=== PATIENT | female | born 1940 | race Caucasian/White ===

== ENCOUNTER → 2016-12-26 | Outpatient (CLI) | payer OTHER, BC ==
--- NOTE | 2016-12-28 19:51 | MRI ---
MRI left knee without contrast Indication: Left knee pain. Findings: The extensor mechanism is intact. The patellofemoral compartment demonstrates no significa nt chondral thinning or subchondral marrow signal abnormality. The patella remains well positioned w ithin the femoral trochlea. The medial and lateral retinacular complexes are intact. Small amount of suprapatellar joint fluid is noted. There is a moderate-sized popliteal fossa cyst with mild synovi tis present. There is a ganglion cyst at the myotendinous junction of the popliteus muscle without t ear. Pes anserine tendons are intact. The medial femorotibial compartment demonstrates moderate jeff dral thinning with small amount of subcortical cyst formation within femoral condyle. Small surface osteophytes are noted to be present without subchondral marrow edema or cystic change. The lateral f emorotibial compartment demonstrates moderate chondral thinning with small amount of subcortical cys tic change within the extra-articular portion of the anterior lateral femoral condyle on sagittal im age 26. No full thickness or high-grade weight-bearing articular cartilage thinning is identified. S urface osteophytes are also noted within the lateral femorotibial compartment. Remaining bone marrow signal is preserved. Cruciate ligaments are intact. The fibullar collateral ligament is normal. Iliotibial band and bicep s femoris are normal. Small amount of edema is noted superficial to the superficial MCL with intact appearance of the deep MCL fibers suggesting a low-grade sprain however given the normal appearance of the MCL potentially an MCL bursitis is also a consideration. The lateral meniscus is normal. The te medial meniscus demonstrates a complex tear involving the posterior horn and body, there is obliq ue oriented tear of the posterior horn/body junction seen on sagittal image 12 which appears to exte nd to the undersurface of the meniscal body. There is an additional radial oriented tear involving t he meniscal body on sagittal image 13. There is no anterior or posterior root tear. Impression: 1. Complex tear of the posterior horn and body of the medial meniscus with combination of horizontal undersurface tear of the posterior horn/body junction and tiny radial oriented tear of the meniscal body. 2. Small amount of fluid superficial to the superficial MCL represents either a grade 1 MCL sprain o r an MCL bursitis, clinical correlation is needed. 3. 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 4. Moderate-sized popliteal fossa cyst with synovitis. 5. No acute cruciate or collateral ligamentous tear. Reported By:
== END ==
LOC: RAD 13:42
PROVIDERS: ATTEND Nurse Practitioner Family
DX: M25.562 Pain in left knee (principal); M17.12 Unilateral primary osteoarthritis, left knee; M71.22 Synovial cyst of popliteal space [Baker], left knee; R26.2 Difficulty in walking, not elsewhere classified
CPT/HCPCS: 73721

== ENCOUNTER → 2017-06-08 | Outpatient (CLI) | payer OTHER, BC ==
--- NOTE | 2017-06-08 14:39 | VAS ---
HISTORY: Left leg pain and edema Study: Venous Doppler Comparison: None TECHNIQUE: Multiple johnson scale and color flow Doppler images of the deep venous system were obtained of the left lower extremity FINDINGS: There is normal respiratory phasicity, compression and augmentation of the extremity veins without ev idence of acute DVT. IMPRESSION: 1. Negative for DVT. Reported By:
== END ==
LOC: RAD 13:54
PROVIDERS: ATTEND Nurse Practitioner Family
DX: M79.605 Pain in left leg (principal)
CPT/HCPCS: 93971

== ENCOUNTER → 2017-07-13 | Outpatient (CLI) | payer OTHER, BC ==
--- NOTE | 2017-07-14 19:55 | CT ---
CT left knee without contrast Indication: Knee pain and swelling following knee replacement 4 months ago Technique: Helical CT images of the left knee were obtained without IV contrast. Reformatted images i n the coronal and sagittal planes were also generated for review. Comparison: MRI 12/26/2016 Findings: Streak artifact from knee arthroplasty hardware moderately limits evaluation. Evaluation fo r soft tissue pathology is also limited without intravenous contrast. Given these limitations, total knee arthroplasty hardware appears well positioned without evidence of hardware loosening or periprosthetic fracture. There is a small suprapatellar joint effusion with as sociated synovial thickening, suggestive for synovitis. No definite loose radiopaque intra-articular bodies are seen. There is also mild nonspecific subcutaneous edema of the prepatellar and pretibial s oft tissues. No discrete drainable fluid collection is identified, given limitations of CT. Evaluatio n of the extensor mechanism is limited due to streak artifact, however there is suggestion of thicken ing of the distal quadriceps as well as patellar tendons, likely representing tendinosis. No definite tear is identified, accounting for streak artifact and limitations of CT technique. Mild generalized muscle atrophy is noted of the distal thigh and proximal foreleg. Impression: No hardware complication or acute osseous abnormality of the left knee. Small suprapatellar joint effusion with associated synovial thickening, suggestive for synovitis. Mild thickening of the distal quadriceps and patellar tendons, suggestive for tendinosis. Nonspecific mild prepatellar and pretibial subcutaneous edema. Reported By:
== END ==
LOC: RAD 14:33
PROVIDERS: ATTEND Nurse Practitioner Family
DX: M25.562 Pain in left knee (principal); M17.12 Unilateral primary osteoarthritis, left knee; M25.462 Effusion, left knee; R26.2 Difficulty in walking, not elsewhere classified; Z96.652 Presence of left artificial knee joint
CPT/HCPCS: 73700